=== PATIENT | male | born 1970 | race Caucasian/White ===

== ENCOUNTER 2021-11-24 09:23 | Emergency (ER) | payer OTHER ==
[~2021-11-24] VITALS: Ht 175.3 cm; Wt 77.2 kg
[2021-11-24 09:32] VITALS: BP 127/78
[2021-11-24] MEDS ORDERED: MOME17SP5 BOTHNARES (09:47)
[2021-11-24] MEDS ORDERED: CETI10TA15 PO (09:47)
== END 2021-11-24 10:09 | disposition home or self-care (01) ==
LOC: ER 09:24
DX: T78.40XA Allergy, unspecified, initial encounter (principal); J30.9 Allergic rhinitis, unspecified; R09.81 Nasal congestion; Z79.899 Other long term (current) drug therapy; X58.XXXA Exposure to other specified factors, initial encounter
CPT/HCPCS: 99283

== ENCOUNTER 2022-06-01 17:58 | Emergency (ER) | payer OTHER ==
[~2022-06-01] VITALS: Ht 172.7 cm; Wt 81.8 kg
[~2022-06-01 17:58] MED LIST: CETI10TA15 PO
[2022-06-01] MEDS ORDERED: IBUP-1986 PO (21:02)
[2022-06-01] MEDS ORDERED: DICL100G30 TOP (21:02)
[2022-06-01] MEDS ORDERED: ketorolac trometh. 30mg/ml inj. IV ONE (21:05)
[2022-06-01 21:15] VITALS: BP 128/67
== END 2022-06-01 21:54 | disposition home or self-care (01) ==
LOC: ER 17:59
DX: R07.89 Other chest pain (principal); G89.29 Other chronic pain; Z79.899 Other long term (current) drug therapy
CPT/HCPCS: 93005; 96374; 99283; J1885

== ENCOUNTER 2022-08-10 11:16 | Emergency (ER) | payer OTHER ==
[~2022-08-10] VITALS: Ht 172.7 cm; Wt 81.8 kg
[~2022-08-10 11:16] MED LIST changes: +DICL100G30 TOP; +IBUP-1986 PO
[2022-08-10 12:07] LABS: BASOPHILS % (AUTO) 0.8 % (0-1); EOSINOPHILS # (AUTO) 0.1 X10'3 (0-0.9); EOSINOPHILS % (AUTO) 1.8 % (0-6); HEMATOCRIT 45.8 % (42.0-52.0); HEMOGLOBIN 15.4 g/dl (14.0-17.9); LYMPHOCYTES # (AUTO) 1.6 X10'3 (1.1-4.8); LYMPHOCYTES % (AUTO) 28.4 % (21-51); MEAN CORPUSCULAR HEMOGLOBIN 31.3 PG (27.0-31.0); MEAN CORPUSCULAR HGB CONC 33.6 g/dL (33.0-36.5); MEAN PLATELET VOLUME 8.1 FL (7.4-10.4); MONOCYTES # (AUTO) 0.6 X10'3 (0-0.9); MONOCYTES % (AUTO) 11.4 % (2-12); NEUTROPHILS # (AUTO) 3.3 X10'3 (1.8-7.7); NEUTROPHILS % (AUTO) 57.6 % (42-75); PLATELET COUNT 280 X10'3 (140-440); RED BLOOD COUNT 4.92 X10'6 (4.70-6.10); RED CELL DISTRIBUTION WIDTH 13.4 % (11.5-14.5); WHITE BLOOD COUNT 5.7 X10'3 (4.5-11.0)
[2022-08-10 12:17] LABS: ALANINE AMINOTRANSFERASE 45 U/L (12-78); ALBUMIN 4.2 G/DL (3.4-5.0); ALBUMIN/GLOBULIN RATIO 1.2 (1.1-1.5); ALKALINE PHOSPHATASE 94 IU/L (46-116); ANION GAP 5 (8-16); ASPARTATE AMINO TRANSFERASE 27 U/L (10-37); BILIRUBIN,TOTAL 0.5 MG/DL (0.1-1.0); BLOOD UREA NITROGEN 20 MG/DL (7-18); BUN/CREATININE RATIO 26.3 (5.4-32.0); CALCIUM 9.9 MG/DL (8.5-10.1); CHLORIDE 104 MMOL/L (99-107); CREATININE 0.76 MG/DL (0.60-1.10); GLUCOSE 109 MG/DL (70-104); POTASSIUM 4.4 MMOL/L (3.5-5.1); SODIUM 140 MMOL/L (135-145); TOTAL CARBON DIOXIDE 31.2 MMOL/L (24-32); TOTAL PROTEIN 7.8 G/DL (6.4-8.2); eGFR > 90 ML/MIN
[2022-08-10] MEDS ORDERED: METH4TAB3 PO (13:47)
[2022-08-10] MEDS ORDERED: PANT-47 PO (13:47)
[2022-08-10] MEDS ORDERED: LORA10TA65 PO (13:47)
[2022-08-10 14:05] VITALS: BP 117/79
== END 2022-08-10 14:09 | disposition home or self-care (01) ==
LOC: ER 11:16
DX: J45.909 Unspecified asthma, uncomplicated (principal); R10.13 Epigastric pain; R06.7 Sneezing; J34.89 Other specified disorders of nose and nasal sinuses; G89.29 Other chronic pain
CPT/HCPCS: 36415; 71045; 80053; 83880; 84484; 85025; 93005; 99285

== ENCOUNTER 2023-01-27 11:39 | Emergency (ER) | payer OTHER ==
[~2023-01-27] VITALS: Ht 172.7 cm; Wt 82.0 kg
[~2023-01-27 11:39] MED LIST changes: +LORA10TA65 PO; +METH4TAB3 PO; +PANT-47 PO
[2023-01-27 11:46] VITALS: BP 132/78
--- NOTE | 2023-01-27 11:54 | NUR ---
Pt in [facility]. Pt came in today for a laceration to lateral side of his L palm. Pt was grabbing a tool in his tool box and cut his hand on one of his tools. Pt educated to POC, Pt in agreement. Pending providers eval and treatment.
[2023-01-27] MEDS ORDERED: TETanus/Pertussis (Acell)/Diphther VAC/PF (Tdap-Adult) 0.5ml syringe IMVAC ONE (12:15)
[2023-01-27] MEDS ORDERED: bacitracin 15gm ointment TP ONE (12:15)
[2023-01-27] MEDS ORDERED: LIDOCAINE 2%/EPI 1:100,000 inj. Multi-dose 20 ML VIAL IJ ONE (12:16)
== END 2023-01-27 12:49 | disposition home or self-care (01) ==
LOC: ER 11:40
DX: S61.411A Laceration without foreign body of right hand, initial encounter (principal); G89.29 Other chronic pain; X58.XXXA Exposure to other specified factors, initial encounter; Y93.89 Activity, other specified; Y92.89 Other specified places as the place of occurrence of the external cause; Y99.8 Other external cause status
CPT/HCPCS: 12001; 90471; 90715; 99283; A6449

== ENCOUNTER 2023-05-14 11:31 | Emergency (ER) | payer OTHER ==
[~2023-05-14] VITALS: Ht 172.7 cm; Wt 75.2 kg
[2023-05-14 11:32] VITALS: BP 124/91; PULSE 80; RESP 16; TEMP 98.7; O2SAT 99
[2023-05-14 12:03] LABS: CLARITY,URINE CLEAR (Clear); COLOR,URINE YELLOW (Yellow); GLUCOSE, URINE NEGATIVE (Neg); KETONES,URINE NEGATIVE (Neg); LEUKOCYTE ESTERASE ,URINE NEGATIVE (Neg); NITRITES, URINE NEGATIVE (Neg); OCCULT BLOOD,URINE TRACE-INTACT (Neg); PH,URINE 5.5 (4.8-8.0); PROTEIN,URINE NEGATIVE (Neg); UROBILINOGEN,URINE 0.2 E.U/dL (0.2-1.0)
[2023-05-14 12:09] LABS: UA COLLECTION TYPE CLN CATCH MIDSTREAM
[2023-05-14 12:11] LABS: BASOPHILS % (AUTO) 0.6 % (0-1); EOSINOPHILS # (AUTO) 0.1 X10'3 (0-0.9); EOSINOPHILS % (AUTO) 1.4 % (0-6); HEMATOCRIT 44.9 % (42.0-52.0); LYMPHOCYTES # (AUTO) 1.2 X10'3 (1.1-4.8); LYMPHOCYTES % (AUTO) 19.9 % (21-51); MEAN CORPUSCULAR HGB CONC 33.5 g/dL (33.0-36.5); MEAN CORPUSCULAR VOLUME 92.3 FL (78-98); MEAN PLATELET VOLUME 8.2 FL (7.4-10.4); MONOCYTES # (AUTO) 0.6 X10'3 (0-0.9); MONOCYTES % (AUTO) 10.2 % (2-12); NEUTROPHILS # (AUTO) 4.1 X10'3 (1.8-7.7); NEUTROPHILS % (AUTO) 67.9 % (42-75); PLATELET COUNT 261 X10'3 (140-440); RED BLOOD COUNT 4.86 X10'6 (4.70-6.10); RED CELL DISTRIBUTION WIDTH 13.3 % (11.5-14.5)
[2023-05-14 12:13] LABS: BACTERIA,URINE FEW /HPF (Neg); MUCUS STRANDS FEW /LPF (Neg); RBC,URINE 0-2 /HPF (0-2); SQUAMOUS EPITHELIAL CELL,UR FEW /LPF (FEW); WBC,URINE 0-4 /HPF (0-4)
[2023-05-14 12:14] LABS: HYALINE CASTS 0-3 /LPF (NEGATIVE)
[2023-05-14 12:28] LABS: ALANINE AMINOTRANSFERASE 47 U/L (12-78); ALBUMIN/GLOBULIN RATIO 1.3 (1.1-1.5); ALKALINE PHOSPHATASE 83 IU/L (46-116); ANION GAP 12 (8-16); ASPARTATE AMINO TRANSFERASE 24 U/L (10-37); BILIRUBIN,TOTAL 0.6 MG/DL (0.1-1.0); BLOOD UREA NITROGEN 14 MG/DL (7-18); BUN/CREATININE RATIO 16.3 (10.0-20.0); CALCIUM 9.2 MG/DL (8.5-10.1); CHLORIDE 104 MMOL/L (99-107); CREATININE 0.86 MG/DL (0.60-1.10); GLUCOSE 103 MG/DL (70-104); LIPASE 139 U/L (73-393); POTASSIUM 4.2 MMOL/L (3.5-5.1); SODIUM 138 MMOL/L (135-145); TOTAL PROTEIN 7.2 G/DL (6.4-8.2); eGFR > 90 ML/MIN
== END 2023-05-14 13:40 | disposition home or self-care (01) ==
LOC: ER 11:31
DX: R42 Dizziness and giddiness (principal); F41.9 Anxiety disorder, unspecified; K64.8 Other hemorrhoids
CPT/HCPCS: 36415; 80053; 81001; 83690; 85025; 93005; 99284